=== PATIENT | male | born 1955 | race American Indian/Alaskan Native ===

== ENCOUNTER 2019-06-13 10:33 | Emergency (ER) | payer OTHER ==
--- NOTE | 2019-06-13 13:17 | Emergency Department Report ---
- General Chief Complaint: Allergic Reaction Stated Complaint: ALLERGIES/VOMITING Time Seen by Provider: 06/13/19 12:35 Source: patient Mode of arrival: Ambulatory Limitations: No Limitations - History of Present Illness Initial Comments: Patient is a 63-year-old male presents emergency room with complaints of allergies to pollen. He states that he has had a dry cough for a week. He states that he had one episode of posttussis emesis. He denies any fever, shortness of breath, chest pain, diarrhea. He denies any recent travel or sick contacts. He states he has a past medical history of DM and HTN. He states that his primary care physician took him off his blood pressure medication last month. He denies any allergies to medications. He is a former smoker. He states that he does drink wine regularly. - Related Data Home Medications Medication Instructions Recorded Confirmed Last Taken Omeprazole [PriLOSEC] 10 mg PO DAILY 04/10/14 04/10/14 04/09/14 Simvastatin (Nf) [Zocor] 20 mg PO QHS 04/10/14 04/10/14 04/09/14 hydroCHLOROthiazide [Hctz] 25 mg PO QDAY 04/10/14 04/10/14 04/10/14 lisinopriL [Zestril] 20 mg PO BID 04/10/14 04/10/14 04/10/14 metFORMIN [Glucophage] 1,000 mg PO BID 04/10/14 04/10/14 04/10/14 Previous Rx's Medication Instructions Recorded Last Taken Type Acetaminophen/Codeine 1 tab PO Q6H PRN #20 tab 04/10/14 Unknown Rx [Acetaminophen-Codeine #3 TAB] Gentamicin 0.3% Ophth Soln 2 drops OP Q4H #1 bottle 04/10/14 Unknown Rx Ibuprofen [Motrin] 600 mg PO Q8H PRN #40 tablet 04/10/14 Unknown Rx Cetirizine HCl [Zyrtec 10mg tab] 10 mg PO DAILY #30 tablet 06/13/19 Unknown Rx Fluticasone [Flonase] 1 spray NS QDAY #1 bottle 06/13/19 Unknown Rx Lisinopril/Hydrochlorothiazide 1 each PO DAILY #30 tablet 06/13/19 Unknown Rx [Zestoretic 10-12.5 mg Tablet] Allergies Allergy/AdvReac Type Severity Reaction Status Date / Time No Known Allergies Allergy Verified 04/10/14 06:54 ED Review of Systems ROS: Stated complaint: ALLERGIES/VOMITING Other details as noted in HPI Comment: All other systems reviewed and negative ED Past Medical Hx - Past Medical History Previous Medical History?: Yes Hx Hypertension: Yes Hx Diabetes: Yes Hx GERD: Yes Additional medical history: hyperlipidemia - Surgical History Past Surgical History?: No - Social History Smoking Status: Never Smoker Substance Use Type: None - Medications Home Medications: Home Medications Medication Instructions Recorded Confirmed Last Taken Type Acetaminophen/Codeine 1 tab PO Q6H PRN #20 tab 04/10/14 Unknown Rx [Acetaminophen-Codeine #3 TAB] Gentamicin 0.3% Ophth Soln 2 drops OP Q4H #1 bottle 04/10/14 Unknown Rx Ibuprofen [Motrin] 600 mg PO Q8H PRN #40 tablet 04/10/14 Unknown Rx Omeprazole [PriLOSEC] 10 mg PO DAILY 04/10/14 04/10/14 04/09/14 History Simvastatin (Nf) [Zocor] 20 mg PO QHS 04/10/14 04/10/14 04/09/14 History hydroCHLOROthiazide [Hctz] 25 mg PO QDAY 04/10/14 04/10/14 04/10/14 History lisinopriL [Zestril] 20 mg PO BID 04/10/14 04/10/14 04/10/14 History metFORMIN [Glucophage] 1,000 mg PO BID 04/10/14 04/10/14 04/10/14 History Cetirizine HCl [Zyrtec 10mg tab] 10 mg PO DAILY #30 tablet 06/13/19 Unknown Rx Fluticasone [Flonase] 1 spray NS QDAY #1 bottle 06/13/19 Unknown Rx Lisinopril/Hydrochlorothiazide 1 each PO DAILY #30 tablet 06/13/19 Unknown Rx [Zestoretic 10-12.5 mg Tablet] ED Physical Exam - General Limitations: No Limitations General appearance: alert, in no apparent distress - Head Head exam: Present: atraumatic, normocephalic - Eye Eye exam: Present: normal appearance - ENT ENT exam: Present: mucous membranes moist, other (pale boggy turbinates) - Respiratory Respiratory exam: Present: normal lung sounds bilaterally. Absent: respiratory distress, wheezes, rales, rhonchi, stridor, chest wall tenderness, accessory muscle use, decreased breath sounds, prolonged expiratory - Cardiovascular Cardiovascular Exam: Present: regular rate, normal rhythm, normal heart sounds. Absent: systolic murmur, diastolic murmur, rubs, gallop - Neurological Exam Neurological exam: Present: alert, oriented X3 - Psychiatric Psychiatric exam: Present: normal affect, normal mood - Skin Skin exam: Present: warm, dry, intact ED Course Vital Signs 06/13/19 06/13/19 10:44 14:12 Temperature 98.1 F Pulse Rate 98 H 90 Respiratory 16 18 Rate Blood Pressure 184/122 Blood Pressure 172/118 [Left] O2 Sat by Pulse 94 96 Oximetry ED Medical Decision Making - Lab Data Vital Signs 06/13/19 06/13/19 10:44 14:12 Temperature 98.1 F Pulse Rate 98 H 90 Respiratory 16 18 Rate Blood Pressure 184/122 Blood Pressure 172/118 [Left] O2 Sat by Pulse 94 96 Oximetry - Radiology Data Radiology results: report reviewed CHEST 2 VIEWS INDICATION / CLINICAL INFORMATION: cough x1 week. COMPARISON: None available. FINDINGS: SUPPORT DEVICES: None. HEART / MEDIASTINUM: No significant abnormality. LUNGS / PLEURA: Trace left basilar subsegmental atelectasis. No focal consolidation or pleural effusion. No pneumothorax. ADDITIONAL FINDINGS: No significant additional findings. IMPRESSION: 1. No acute findings. Signer Name: Mynor Kunz MD Signed: 06/13/2019 1:26 PM Workstation Name: [id number] Transcribed By: FRANKIE Dictated By: Mynor Kunz MD Electronically Authenticated By: Mynor Kunz MD Signed Date/Time: 06/13/191325 DD/ 25 TD/TT: - Medical Decision Making Patient is a 63-year-old male presents emergency room with complaints of allergies to pollen. He states that he has had a dry cough for a week. He states that he had one episode of posttussis emesis. He denies any fever, shortness of breath, chest pain, diarrhea. He denies any recent travel or sick contacts. He states he has a past medical history of DM and HTN. He states that his primary care physician took him off his blood pressure medication last month. He denies any allergies to medications. He is a former smoker. He states that he does drink wine regularly. Vitals with elevated blood pressure otherwise stable. Patient is asymptomatic regarding his blood pressure at this time. He denies any chest pain, shortness of breath, headache, vision changes, numbness, weakness. On exam patient has pale boggy turbinates, clear breath sounds bilaterally. Chest x-ray with no acute process. Patient given Flonase and Zyrtec. Patient will be placed back on his anti-hypertensive medication. advised pt Please use medication as prescribed. Please keep a blood pressure log and take your blood pressure 3 times a day and write this down in the log. eat a low sodium diet. incorporate 30 minutes of daily exercise. Follow-up with your primary care doctor and take the log with you. Return to the emergency room immediately for any new or worsening symptoms including but not limited to high fevers, shortness of breath, difficulty breathing, chest pain, unable to tolerate by mouth intake, etc. - Differential Diagnosis URI, PNA, bronchitis, allergies, allergic rhinitis, sinusitis, viral syndro Critical care attestation.: If time is entered above; I have spent that time in minutes in the direct care of this critically ill patient, excluding procedure time. ED Disposition Clinical Impression: Cough Allergic rhinitis Qualifiers: Allergic rhinitis trigger: pollen Allergic rhinitis seasonality: seasonal Qualified Code(s): J30.1 - Allergic rhinitis due to pollen HTN (hypertension) Qualifiers: Hypertension type: unspecified Qualified Code(s): I10 - Essential (primary) hypertension Disposition: DC-01 TO HOME OR SELFCARE Is pt being admited?: No Does the pt Need Aspirin: No Condition: Stable Instructions: Allergic Rhinitis (ED), Hypertension (ED) Additional Instructions: Please use medication as prescribed. Please keep a blood pressure log and take your blood pressure 3 times a day and write this down in the log. eat a low sodium diet. incorporate 30 minutes of daily exercise. Follow-up with your primary care doctor and take the log with you. Return to the emergency room immediately for any new or worsening symptoms including but not limited to high fevers, shortness of breath, difficulty breathing, chest pain, unable to tolerate by mouth intake, etc. Prescriptions: Fluticasone [Flonase] 1 spray NS QDAY #1 bottle Lisinopril/Hydrochlorothiazide [Zestoretic 10-12.5 mg Tablet] 1 each PO DAILY #30 tablet Cetirizine HCl [Zyrtec 10mg tab] 10 mg PO DAILY #30 tablet Referrals: HAZEL STEVENS MD [Staff Physician] - 3-5 Days [facility] [Provider Group] - 3-5 Days BRENDA AYALA MD [Staff Physician] - 3-5 Days Forms: Work/School Release Form(ED) Time of Disposition: 13:39 Print Language: CITIZEN OF [place]
--- NOTE | 2019-06-13 13:31 | XRay Report ---
CHEST 2 VIEWS INDICATION / CLINICAL INFORMATION: cough x1 week. COMPARISON: None available. FINDINGS: SUPPORT DEVICES: None. HEART / MEDIASTINUM: No significant abnormality. LUNGS / PLEURA: Trace left basilar subsegmental atelectasis. No focal consolidation or pleural effusi on. No pneumothorax. ADDITIONAL FINDINGS: No significant additional findings. IMPRESSION: 1. No acute findings. Signer Name: Mynor Kunz MD Signed: 06/13/2019 1:26 PM Workstation Name: [id number]
[2019-06-13 14:13] VITALS: BP 172/118
== END 2019-06-13 14:14 | disposition home or self-care (01) ==
LOC: ED 10:33
DX: J30.1 Allergic rhinitis due to pollen (principal); I10 Essential (primary) hypertension; R05 Cough; E11.9 Type 2 diabetes mellitus without complications; K21.9 Gastro-esophageal reflux disease without esophagitis; E78.5 Hyperlipidemia, unspecified
CPT/HCPCS: 71046

== ENCOUNTER 2021-04-18 12:57 | Outpatient (CLI) | payer OTHER ==
--- NOTE | 2021-04-18 14:52 | XRay Report ---
Bilateral hand radiographs, 3 views of the right hand and 2 views of the left hand. HISTORY: Pain COMPARISON: None FINDINGS: Right hand: There is chondrocalcinosis at the TFCC and at the index MCP, also minimally involving the right thumb CMC and MCP joints. No osseous erosions. No acute fracture or malalignment. Left hand: No fracture or malalignment. No significant arthritis. Soft tissues are unremarkable. 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 No evidence of acute abnormalit y in either hand. Signer Name: Sotero Triplett MD Signed: 04/18/2021 2:48 PM Workstation Name: [id number]
--- NOTE | 2021-04-18 14:55 | XRay Report ---
Right ankle, 2 views HISTORY: Pain COMPARISON: None FINDINGS: 2 partially threaded screws traverse the medial malleolus. There is a lateral fibular fixation plate and screw construct with 2 mm of reverse migration of the distal fixation screw, may reflect mild alexandru dware loosening.. Otherwise, no evidence of hardware complication. No acute fracture or malalignment. There is mild to moderate degenerative arthrosis of the right ankle joint with mild calcific debris projecting within the joint, likely representing osteochondral bodies. Signer Name: Sotero Triplett MD Signed: 04/18/2021 2:51 PM Workstation Name: [id number]
--- NOTE | 2021-04-18 15:22 | XRay Report ---
Lumbar spine, 3 views HISTORY: Back pain COMPARISON: None FINDINGS: Lumbar spinal alignment is preserved. There is no evidence of fracture. Mild disc space height loss n oted at L4-L5 and L5-S1. There is moderate lower lumbar facet arthropathy. SI joints are intact. Soft tissues are unremarkable. IMPRESSION: Lower lumbar spondylosis. No acute process. Signer Name: Sotero Triplett MD Signed: 04/18/2021 3:18 PM Workstation Name: [id number]
== END 2021-04-18 12:58 | disposition home or self-care (01) ==
LOC: XRAY 12:57
PROVIDERS: ATTEND Internal Medicine
DX: M19.071 Primary osteoarthritis, right ankle and foot (principal); M51.36 Other intervertebral disc degeneration, lumbar region; M47.816 Spondylosis without myelopathy or radiculopathy, lumbar region; M79.642 Pain in left hand; M79.641 Pain in right hand
CPT/HCPCS: 72100